=== PATIENT | female | born 1985 | race Caucasian/White ===

== ENCOUNTER 2022-06-15 16:55 | Emergency (ER) | payer OTHER ==
[~2022-06-15] VITALS: Ht 162.6 cm; Wt 59.0 kg
--- NOTE | 2022-06-15 17:27 | NUR ---
DON MITTAL AT BEDSIDE FOR MSE
[2022-06-15] MEDS ORDERED: IV NORMAL SALINE 1000 ML BAG IV ONE (17:30)
[2022-06-15 17:44] LABS: HEMATOCRIT 37.6 % (31.2-41.9); MEAN CORPUSCULAR HEMOGLOBIN 30.1 uug (24.7-32.8); MEAN CORPUSCULAR VOLUME 90.6 fL (75.5-95.3); PLATELET COUNT (AUTO) 129 K/uL (179-408)
[2022-06-15 17:52] LABS: *BLOOD, URINE 2+ (NEGATIVE); *CLARITY,URINE CLEAR (CLEAR); *COLOR,URINE YELLOW (YELLOW); *KETONES,URINE 4+ (NEGATIVE); LEUKOCYTE ESTERASE ,URINE NEGATIVE (NEGATIVE); NITRITE, URINE NEGATIVE (NEGATIVE); PH,URINE 5.5 (5.0-8.0); UGLUCOSE NEGATIVE (NEGATIVE)
[2022-06-15 17:57] LABS: *BILIRUBIN,URIN 1+ (NEGATIVE)
[2022-06-15 17:58] LABS: WBC,URINE 0-3 /HPF (0-3)
[2022-06-15 18:02] LABS: *URINE HCG, QUAL NEGATIVE (NEGATIVE)
[2022-06-15 18:03] LABS: ETHANOL < 3 MG/DL (0-0)
[2022-06-15 18:08] LABS: THYROID STIMULATING HORMONE 2.195 mIU/mL (0.358-3.740)
[2022-06-15 18:09] LABS: *AMPHETAMINE, URINE NEGATIVE (NEGATIVE); *CANNABINOID, URINE POSITIVE (NEGATIVE); *COCCAINE, URINE NEGATIVE (NEGATIVE); *PHENCYCLIDINE SCREEN,URINE NEGATIVE (NEGATIVE)
[2022-06-15 18:13] LABS: CARBON DIOXIDE 13 mmol/L (21-32); CHLORIDE 93 mmol/L (98-107); CREATININE 0.8 mg/dL (0.6-1.3); GLUCOSE 187 mg/dL (74-106); POTASSIUM 4.1 mmol/L (3.5-5.1); UREA NITROGEN, BLOOD 12 mg/dL (7-18)
[2022-06-15 18:22] LABS: ALANINE AMINOTRANSFERASE 388 U/L (14-59); ALKALINE PHOSPHATASE 145 U/L (50-136); ASPARTATE AMINOTRANSFERASE 415 U/L (15-37); BILIRUBIN,DIRECT 0.9 mg/dL (0.0-0.2); BILIRUBIN,TOTAL 1.9 mg/dL (0.2-1.0); TOTAL PROTEIN, SERUM 7.4 g/dL (6.4-8.2)
[2022-06-15] MEDS ORDERED: ONDANSETRON 4 MG/2 ML VIAL IV ONE (18:30)
[2022-06-15] MEDS ORDERED: THIAMINE HCL 200 MG/2 ML VIAL IV ONE ×2 (18:30→18:45)
[2022-06-15] MEDS ORDERED: CHLORDIAZEPOXIDE HCL 25 MG CAPSULE PO ONE (18:30)
[2022-06-15] MEDS ORDERED: IV D5/ 0.9% NACL 1,000 ML IV ONE (19:00)
[2022-06-15] MEDS ORDERED: LORAZEPAM 2 MG/1 ML VIAL IV ONE (19:00)
[2022-06-15] MEDS ORDERED: IV D5W-0.9% NS 1000 ML BAG IV ONE (19:00)
[2022-06-15 19:05] LABS: ABG BASE EXCESS -8.6 mmol/L; ABG HCO3 13.8 mmol/L; ABG PCO2 21.5 mmHg (35.0-45.0); ABG PH 7.425 (7.350-7.450); ABG SITE RIGHT RADIAL; ABG TOTAL HEMOGLOBIN 12.2 G/dL (12.0-16.0); COHb 0.4 % (0.5-1.5); MetHb 0.3 % (0.0-1.5); O2Hb 96.4 % (94.0-97.0); VENT MODE Room Air
[2022-06-15] MEDS ORDERED: THIAMINE HCL 200 MG/2 ML VIAL ONE (19:07)
[2022-06-15] MEDS ORDERED: MAGNESIUM SULFATE/D5W 100 ML ONE (19:07)
[2022-06-15] MEDS ORDERED: ONDANSETRON 4 MG/2 ML VIAL ONE (19:07)
[2022-06-15] MEDS ORDERED: CHLORDIAZEPOXIDE HCL 25 MG CAPSULE ONE (19:07)
[2022-06-15] MEDS ORDERED: LORAZEPAM 2 MG/1 ML VIAL ONE (19:08)
[2022-06-15] MEDS ORDERED: MVI-12 10 ML IV ONE (19:15)
[2022-06-15] MEDS: MAGNESIUM SULFATE/D5W 100 ML IV SCH ×4 (19:15→23:00)
--- NOTE | 2022-06-15 19:20 | NUR ---
REPORT RECEIVED FROM ALEXANDREA RENTERIA.
--- NOTE | 2022-06-15 19:28 | NUR ---
sbar to Dayana RENTERIA
[2022-06-15 19:56] LABS: MAGNESIUM 1.5 mg/dL (1.8-2.4)
--- NOTE | 2022-06-15 20:20 | NUR ---
DR TEJEDA WANTS TO ADMIT PT FOR ETOH WITHDRAWL/ ALCOHOL HEPATITIS.
--- NOTE | 2022-06-15 20:30 | NUR ---
[facility] CALLED FOR TRANSFER.
--- NOTE | 2022-06-15 20:45 | NUR ---
[facility] WAS CALLED. I SPOKE WITH RASHARD. REN WILL CALL BACK.
--- NOTE | 2022-06-15 21:00 | NUR ---
PT ATE A MEAL WITH NO N/V.
[2022-06-15] MEDS ORDERED: MVI-12 10 ML ONE (21:13)
[2022-06-15] MEDS ORDERED: MAGNESIUM SULFATE/D5W 200 ML ONE (22:04)
--- NOTE | 2022-06-15 22:31 | NUR ---
PT A,A AND O X 3 WITH NO CP, NO SOB , VSS. WAITING FOR TRANSFER.
--- NOTE | 2022-06-15 23:30 | NUR ---
PT EATING A MEAL WITH NO N/V.
--- NOTE | 2022-06-15 23:43 | NUR ---
[facility] transfer Center called, patient assigned to room 514B [phone] - call for report
--- NOTE | 2022-06-16 00:01 | NUR ---
[facility] CALLED FOR TRANSPORT. ETA 30 MIN.
--- NOTE | 2022-06-16 00:25 | NUR ---
REPORT GIVEN TO KATRIN RENTERIA AT [facility] PT GOING TO [address].
--- NOTE | 2022-06-16 00:30 | NUR ---
PT UP OOB AMB TO BR WITH STEADY GAIT. REPORT GIVEN TO DAVI/ Precious PRADHAN.
--- NOTE | 2022-06-16 00:55 | NUR ---
Patient Tranfers to outside Facility: YES Physician:TAYLOR Location:[facility] , [address] PT A,A AND O X 4, WITH NO CP, NO SOB, VSS. PT TRANSPORTED VIA [facility], ON STRETCHER TO [facility].
== END 2022-06-16 00:55 | disposition short-term general hospital (02) ==
LOC: ER 16:58
DX: E87.29 Other acidosis (principal); F10.239 Alcohol dependence with withdrawal, unspecified; F10.229 Alcohol dependence with intoxication, unspecified; Z20.822 Contact with and (suspected) exposure to COVID-19; Y90.0 Blood alcohol level of less than 20 mg/100 ml
CPT/HCPCS: 80076; 80048; 81001; 82607; 84703; 83735; 84443; 84425; 85025; 85379; 85730; 87426; 84484 ×2; 36415; 93005; 71045; 99285; 96365; 96366; 96375; 80320; 80307; 36600 ×2; J2060; J3475 ×2; J3490; J2405; J3411; J7042; J7040; A4663; G0480